=== PATIENT | female | born 1955 | race Caucasian/White ===

== ENCOUNTER 2016-11-20 16:02 | Emergency (ER) | payer OTHER ==
[~2016-11-20] VITALS: Ht 167.6 cm; Wt 90.0 kg
[~2016-11-20 16:02] MED LIST: CALC-69 PO; CLON1TAB4 PO; FERR1TAB85 PO; HYDR-3421 PO; LEVE1000 PO; LEVO50TA11 PO; MELO-273 PO; MIRT30 PO; PHENY100 PO; QUET100T PO; SERT100T PO; SIMV20TA6 PO; VENL-68 PO
[2016-11-20] MEDS ORDERED: BENZ2TAB10 PO (16:20)
[2016-11-20] MEDS ORDERED: TRAM50TA4 PO (16:20)
[2016-11-20] MEDS ORDERED: PHEN100C9 PO ×2 (16:20)
[2016-11-20] MEDS ORDERED: HYDR-309 PO (16:20)
[2016-11-20] MEDS ORDERED: LEVE500T53 PO (16:20)
[2016-11-20 19:32] VITALS: BP 145/83
== END 2016-11-20 19:35 | disposition home or self-care (01) ==
LOC: EMS 16:03
DX: S52.502A Unspecified fracture of the lower end of left radius, initial encounter for closed fracture (principal); E03.9 Hypothyroidism, unspecified; F17.210 Nicotine dependence, cigarettes, uncomplicated; F20.9 Schizophrenia, unspecified; Z88.2 Allergy status to sulfonamides; W01.0XXA Fall on same level from slipping, tripping and stumbling without subsequent striking against object, initial encounter; Y93.89 Activity, other specified; Y92.096 Garden or yard of other non-institutional residence as the place of occurrence of the external cause; Y99.9 Unspecified external cause status
CPT/HCPCS: 99284

== ENCOUNTER 2016-12-10 14:28 | Emergency (ER) | payer OTHER ==
[~2016-12-10] VITALS: Ht 162.6 cm; Wt 86.0 kg
[~2016-12-10 14:28] MED LIST changes: +BENZ2TAB10 PO; -CALC-69 PO; -CLON1TAB4 PO; -FERR1TAB85 PO; +HYDR-309 PO; -HYDR-3421 PO; -LEVE1000 PO; +LEVE500T53 PO; -MELO-273 PO; +PHEN100C9 PO; -PHENY100 PO; -SERT100T PO; +TRAM50TA4 PO
[2016-12-10 17:00] VITALS: BP 128/82
[2016-12-10] MEDS ORDERED: HYDROCODONE/ACETAMINOPHEN 5-325 MG TABLET PO ONE (17:00)
[2016-12-10] MEDS ORDERED: VENL-67 PO (17:02)
[2016-12-10] MEDS ORDERED: QUET300T2 PO (17:02)
== END 2016-12-10 17:26 | disposition home or self-care (01) ==
LOC: EMS 14:30
DX: S52.392A Other fracture of shaft of radius, left arm, initial encounter for closed fracture (principal); E03.9 Hypothyroidism, unspecified; F17.210 Nicotine dependence, cigarettes, uncomplicated; Z88.2 Allergy status to sulfonamides; W19.XXXA Unspecified fall, initial encounter; Y93.89 Activity, other specified; Y92.89 Other specified places as the place of occurrence of the external cause; Y99.8 Other external cause status
CPT/HCPCS: 99284

== ENCOUNTER 2018-01-24 14:38 | Emergency (ER) | payer OTHER ==
[~2018-01-24] VITALS: Ht 162.6 cm; Wt 84.1 kg
[~2018-01-24 14:38] MED LIST changes: -QUET100T PO; +QUET300T2 PO; +VENL-67 PO; -VENL-68 PO
[2018-01-24] MEDS ORDERED: TRAZ-219 PO (14:45)
[2018-01-24 16:23] LABS: BASOPHILS % (AUTO) 0.6 % (0.0-2.0); HEMATOCRIT 42.2 % (36-46); HEMOGLOBIN 14.5 g/dL (12.0-16.0); LYMPHOCYTES # (AUTO) 2.4 K/uL (1.0-4.8); LYMPHOCYTES % (AUTO) 31.6 % (22.0-44.0); MEAN CORPUSCULAR HEMOGLOBIN 28.6 pg (26.0-34.0); MEAN CORPUSCULAR HGB CONC 34.2 G/dL (31.0-37.0); MEAN CORPUSCULAR VOLUME 84 fL (80-100); MONOCYTES # (AUTO) 0.4 K/uL (0.1-1.0); MONOCYTES % (AUTO) 4.8 % (2.0-9.0); NEUTROPHILS # (AUTO) 4.6 K/uL (1.8-7.7); PLATELET COUNT (AUTO) 312 K/uL (150-450); RED BLOOD CELL COUNT(AUTO) 5.06 MIL/uL (4.00-5.20); RED CELL DISTRIBUTION WIDTH 14.8 % (11.5-14.5)
[2018-01-24 16:36] LABS: ANION GAP 10 mmol/L (8-16); CALCIUM, TOTAL 9.2 mg/dL (8.8-10.5); CARBON DIOXIDE 28 mmol/L (22-29); CHLORIDE 106 mmol/L (98-107); CREATININE 0.55 mg/dL (0.60-1.30); GLOMERULAR FILTR. RATE CALC > 60 mL/min (>60); GLUCOSE,RANDOM 95 mg/dL (70-110); POTASSIUM 3.7 mmol/L (3.5-5.1); SODIUM SERUM 144 mmol/L (136-145); UREA NITROGEN, BLOOD 7 mg/dL (7-18)
[2018-01-24 16:42] LABS: ALANINE AMINOTRANSFERASE 21 U/L (12-78); ALBUMIN 3.8 g/dL (3.4-5.0); ALKALINE PHOSPHATASE 139 U/L (46-116); ASPARTATE AMINOTRANSFERASE 13 U/L (15-37); BILIRUBIN,TOTAL 0.3 mg/dL (0.1-1.0); TOTAL PROTEIN, SERUM 7.8 g/dL (6.4-8.2)
[2018-01-24 17:14] VITALS: BP 132/93
== END 2018-01-24 17:16 | disposition home or self-care (01) ==
LOC: EMS 14:39
DX: R19.7 Diarrhea, unspecified (principal); K92.1 Melena; M54.5 Low back pain; G89.29 Other chronic pain; F41.9 Anxiety disorder, unspecified; F32.9 Major depressive disorder, single episode, unspecified; F20.9 Schizophrenia, unspecified; E03.9 Hypothyroidism, unspecified; F17.210 Nicotine dependence, cigarettes, uncomplicated; Z71.6 Tobacco abuse counseling; Z87.81 Personal history of (healed) traumatic fracture; Z98.51 Tubal ligation status; Z98.890 Other specified postprocedural states; Z88.2 Allergy status to sulfonamides; Z79.899 Other long term (current) drug therapy
CPT/HCPCS: 99284; 99406

== ENCOUNTER 2018-09-08 19:47 | Emergency (ER) | payer OTHER ==
[~2018-09-08] VITALS: Ht 162.6 cm; Wt 79.5 kg
[~2018-09-08 19:47] MED LIST changes: +CEPH500 PO; +DOCU250C91 PO; -HYDR-309 PO; +LEVO100 PO; -LEVO50TA11 PO; -QUET300T2 PO; +SIMV-260 PO; -SIMV20TA6 PO; -TRAM50TA4 PO
[2018-09-08 22:18] VITALS: BP 153/93
== END 2018-09-09 00:02 | disposition home or self-care (01) ==
LOC: EMS 19:48
DX: L30.9 Dermatitis, unspecified (principal); M54.5 Low back pain; E03.9 Hypothyroidism, unspecified; F41.9 Anxiety disorder, unspecified; F32.9 Major depressive disorder, single episode, unspecified; F20.9 Schizophrenia, unspecified; F12.90 Cannabis use, unspecified, uncomplicated; F17.210 Nicotine dependence, cigarettes, uncomplicated; Z79.899 Other long term (current) drug therapy; Z88.2 Allergy status to sulfonamides; Z98.51 Tubal ligation status

== ENCOUNTER 2018-12-08 16:57 | Emergency (ER) | payer OTHER ==
[~2018-12-08] VITALS: Ht 157.5 cm; Wt 68.2 kg
[2018-12-08 17:49] LABS: BASOPHILS % (AUTO) 0.4 % (0.0-2.0); EOSINOPHILS % (AUTO) 0.1 % (1.0-6.0); HEMATOCRIT 48.5 % (36-46); HEMOGLOBIN 15.9 g/dL (12.0-16.0); LYMPHOCYTES # (AUTO) 2.1 K/uL (1.0-4.8); LYMPHOCYTES % (AUTO) 16.5 % (22.0-44.0); MEAN CORPUSCULAR HEMOGLOBIN 26.3 pg (26.0-34.0); MEAN CORPUSCULAR HGB CONC 32.8 G/dL (31.0-37.0); MEAN CORPUSCULAR VOLUME 80 fL (80-100); MONOCYTES # (AUTO) 0.5 K/uL (0.1-1.0); MONOCYTES % (AUTO) 3.6 % (2.0-9.0); NEUTROPHILS % (AUTO) 79.4 % (40.0-70.0); PLATELET COUNT (AUTO) 348 K/uL (150-450); RED BLOOD CELL COUNT(AUTO) 6.04 MIL/uL (4.00-5.20); RED CELL DISTRIBUTION WIDTH 16.2 % (11.5-14.5)
[2018-12-08 18:02] LABS: ANION GAP 8 mmol/L (8-16); CALCIUM, TOTAL 10.1 mg/dL (8.8-10.5); CARBON DIOXIDE 30 mmol/L (22-29); CHLORIDE 97 mmol/L (98-107); CREATININE 0.89 mg/dL (0.60-1.30); GLOMERULAR FILTR. RATE CALC > 60 mL/min (>60); GLUCOSE,RANDOM 135 mg/dL (70-110); POTASSIUM 4.5 mmol/L (3.5-5.1); SODIUM SERUM 135 mmol/L (136-145); UREA NITROGEN, BLOOD 10 mg/dL (7-18)
[2018-12-08 18:17] LABS: ALANINE AMINOTRANSFERASE 28 U/L (12-78); ALKALINE PHOSPHATASE 164 U/L (46-116); ASPARTATE AMINOTRANSFERASE 20 U/L (15-37); BILIRUBIN,TOTAL 0.5 mg/dL (0.1-1.0); THYROID STIMULATING HORMONE 0.52 uIU/mL (0.36-3.74); TOTAL PROTEIN, SERUM 8.9 g/dL (6.4-8.2)
[2018-12-08] MEDS ORDERED: LORazepam 2 MG TABLET PO ONE (19:15)
[2018-12-08 21:15] VITALS: BP 136/73
== END 2018-12-08 21:25 | disposition home or self-care (01) ==
LOC: EMS 16:59
DX: F41.9 Anxiety disorder, unspecified (principal); R51 Headache; F32.9 Major depressive disorder, single episode, unspecified; F20.9 Schizophrenia, unspecified; E03.9 Hypothyroidism, unspecified; F17.210 Nicotine dependence, cigarettes, uncomplicated; F12.90 Cannabis use, unspecified, uncomplicated; Z98.51 Tubal ligation status; Z88.2 Allergy status to sulfonamides
CPT/HCPCS: 36415; 80053; 80185; 84443; 85025; 99284; 99406; G0480

== ENCOUNTER 2019-08-16 11:48 | Emergency (ER) | payer OTHER ==
[~2019-08-16] VITALS: Ht 162.6 cm; Wt 76.4 kg
[~2019-08-16 11:48] MED LIST changes: +DOCU-342 PO; -DOCU250C91 PO
[2019-08-16] MEDS ORDERED: HYDR50CA9 PO (11:58)
[2019-08-16] MEDS ORDERED: TRAZ-252 PO (11:58)
[2019-08-16] MEDS ORDERED: DiphenhydrAMINE HCL 25 MG CAPSULE PO ONE (12:45)
[2019-08-16] MEDS ORDERED: PERMETHRIN 5% 60 GM CREAM TP ONE (12:45)
[2019-08-16 13:28] VITALS: BP 121/79
== END 2019-08-16 13:44 | disposition home or self-care (01) ==
LOC: EMS 11:54
DX: R21 Rash and other nonspecific skin eruption (principal); F41.9 Anxiety disorder, unspecified; F32.9 Major depressive disorder, single episode, unspecified; F20.9 Schizophrenia, unspecified; F17.210 Nicotine dependence, cigarettes, uncomplicated; F12.90 Cannabis use, unspecified, uncomplicated; Z88.1 Allergy status to other antibiotic agents

== ENCOUNTER 2019-08-18 10:34 | Emergency (ER) | payer OTHER ==
[~2019-08-18] VITALS: Ht 162.6 cm; Wt 63.6 kg
[~2019-08-18 10:34] MED LIST changes: -CEPH500 PO; +HYDR50CA9 PO; +TRAZ-252 PO
[2019-08-18 11:26] VITALS: BP 152/72
[2019-08-18] MEDS ORDERED: DiphenhydrAMINE/ZINC ACET 30 GM CREAM TP ONE (11:45)
[2019-08-18] MEDS ORDERED: DOXYCYCLINE HYCLATE 100 MG CAPSULE PO ONE (11:45)
[2019-08-18] MEDS ORDERED: DEXAMETHASONE SOD PHOS 4 MG/ML 5 ML VIAL IM ONE (11:45)
== END 2019-08-18 12:44 | disposition home or self-care (01) ==
LOC: EMS 10:35
DX: L30.9 Dermatitis, unspecified (principal); F17.210 Nicotine dependence, cigarettes, uncomplicated; F12.90 Cannabis use, unspecified, uncomplicated; F41.9 Anxiety disorder, unspecified; F32.9 Major depressive disorder, single episode, unspecified; F20.9 Schizophrenia, unspecified; Z88.2 Allergy status to sulfonamides
CPT/HCPCS: 96372; 99283; 99406; J1100

== ENCOUNTER 2019-09-03 15:02 | Emergency (ER) | payer OTHER ==
[~2019-09-03] VITALS: Ht 162.6 cm; Wt 76.4 kg
[2019-09-03 15:04] VITALS: BP 140/64
[2019-09-03] MEDS ORDERED: CEPHALEXIN MONOHYDRATE 500 MG CAPSULE PO ONE (16:15)
[2019-09-03] MEDS ORDERED: BACITRACIN 0.9 GM PACKET OINTMENT TP ONE (16:15)
[2019-09-03] MEDS ORDERED: HydrOXYzine HCL 50 MG TABLET PO ONE (16:15)
== END 2019-09-03 16:30 | disposition home or self-care (01) ==
LOC: EMS 15:06
DX: L03.221 Cellulitis of neck (principal); L03.114 Cellulitis of left upper limb; L03.113 Cellulitis of right upper limb; L03.116 Cellulitis of left lower limb; L03.115 Cellulitis of right lower limb; F41.9 Anxiety disorder, unspecified; F32.9 Major depressive disorder, single episode, unspecified; F20.9 Schizophrenia, unspecified; E03.9 Hypothyroidism, unspecified; F17.210 Nicotine dependence, cigarettes, uncomplicated; Z88.2 Allergy status to sulfonamides; Z79.899 Other long term (current) drug therapy

== ENCOUNTER 2019-09-19 13:38 | Emergency (ER) | payer OTHER ==
[~2019-09-19] VITALS: Ht 162.6 cm; Wt 81.8 kg
[2019-09-19 13:59] VITALS: BP 119/99
== END 2019-09-19 14:58 | disposition home or self-care (01) ==
LOC: EMS 13:43
DX: L30.9 Dermatitis, unspecified (principal); F17.210 Nicotine dependence, cigarettes, uncomplicated; F12.90 Cannabis use, unspecified, uncomplicated; F20.9 Schizophrenia, unspecified; E03.9 Hypothyroidism, unspecified; F41.9 Anxiety disorder, unspecified

== ENCOUNTER 2020-08-07 04:45 | Emergency (ER) | payer OTHER ==
[~2020-08-07] VITALS: Ht 162.6 cm; Wt 72.7 kg
[~2020-08-07 04:45] MED LIST changes: -DOCU-342 PO; +DOCU-350 PO
[2020-08-07] MEDS ORDERED: VENL-68 PO (05:13)
[2020-08-07] MEDS ORDERED: CETI-450 PO (05:13)
[2020-08-07] MEDS ORDERED: KETOROLAC TROMETHAMINE 30 MG/ML VIAL IM ONE (05:15)
[2020-08-07 05:19] LABS: GLUCOSE,POINT OF CARE 115 MG/DL (70-110)
[2020-08-07 06:01] LABS: BASOPHILS % (AUTO) 0.7 % (0.0-2.0); EOSINOPHILS % (AUTO) 3.8 % (1.0-6.0); HEMATOCRIT 39.2 % (36-46); HEMOGLOBIN 13.2 g/dL (12.0-16.0); LYMPHOCYTES # (AUTO) 1.9 K/uL (1.0-4.8); LYMPHOCYTES % (AUTO) 19.6 % (22.0-44.0); MEAN CORPUSCULAR HGB CONC 33.6 G/dL (31.0-37.0); MEAN CORPUSCULAR VOLUME 74 fL (80-100); MONOCYTES # (AUTO) 0.4 K/uL (0.1-1.0); MONOCYTES % (AUTO) 3.9 % (2.0-9.0); NEUTROPHILS # (AUTO) 6.8 K/uL (1.8-7.7); PLATELET COUNT (AUTO) 410 K/uL (150-450); RED BLOOD CELL COUNT(AUTO) 5.28 MIL/uL (4.00-5.20); RED CELL DISTRIBUTION WIDTH 16.8 % (11.5-14.5)
[2020-08-07 06:13] LABS: LACTIC ACID 1.1 mmol/L (0.4-2.0)
[2020-08-07 06:17] LABS: ANION GAP 10 mmol/L (8-16); CALCIUM, TOTAL 8.5 mg/dL (8.8-10.5); CARBON DIOXIDE 27 mmol/L (22-29); CHLORIDE 104 mmol/L (98-107); CREATININE 0.68 mg/dL (0.60-1.30); GLOMERULAR FILTR. RATE CALC > 60 mL/min (>60); GLUCOSE,RANDOM 110 mg/dL (70-110); POTASSIUM 3.6 mmol/L (3.5-5.1); SODIUM SERUM 141 mmol/L (136-145); UREA NITROGEN, BLOOD 9 mg/dL (7-18)
[2020-08-07 06:28] LABS: ALANINE AMINOTRANSFERASE 24 U/L (12-78); ALBUMIN 3.3 g/dL (3.4-5.0); ALKALINE PHOSPHATASE 172 U/L (46-116); ASPARTATE AMINOTRANSFERASE 20 U/L (15-37); BILIRUBIN,TOTAL 0.3 mg/dL (0.1-1.0); C-REACTIVE PROTEIN QUANT 1.79 mg/dL (0.00-0.30); CREATINE KINASE, TOTAL ONLY 148 U/L (26-192); TOTAL PROTEIN, SERUM 8.8 g/dL (6.4-8.2)
[2020-08-07 07:08] LABS: ERYTHROCYTE SEDIMENTATION RATE 22 MM/HR (0-20)
[2020-08-07] MEDS ORDERED: PredniSONE 20 MG TABLET PO ONE (07:30)
[2020-08-07] MEDS ORDERED: ACETAMINOPHEN 650 MG/20.3 ML SOLUTION UDCUP PO ONE (07:30)
[2020-08-07 07:47] VITALS: BP 144/76
== END 2020-08-07 08:10 | disposition home or self-care (01) ==
LOC: EMS 04:46
DX: M19.90 Unspecified osteoarthritis, unspecified site (principal); F41.9 Anxiety disorder, unspecified; F32.9 Major depressive disorder, single episode, unspecified; F20.9 Schizophrenia, unspecified; F17.210 Nicotine dependence, cigarettes, uncomplicated; Z88.1 Allergy status to other antibiotic agents
CPT/HCPCS: 36415; 80053; 82550; 82962; 83605; 84145; 85025; 85651; 86140; 93971; 96372; 99284; J1885; J7512

== ENCOUNTER 2020-08-25 14:17 | Emergency (ER) | payer OTHER ==
[~2020-08-25] VITALS: Ht 162.6 cm; Wt 81.8 kg
[~2020-08-25 14:17] MED LIST changes: -BENZ2TAB10 PO; +CETI-450 PO; -DOCU-350 PO; +VENL-68 PO
[2020-08-25] MEDS ORDERED: KETOROLAC TROMETHAMINE 30 MG/ML VIAL IM ONE (15:45)
[2020-08-25 16:22] VITALS: BP 154/88
== END 2020-08-25 16:25 | disposition home or self-care (01) ==
LOC: EMS 14:20
DX: M25.512 Pain in left shoulder (principal); F41.9 Anxiety disorder, unspecified; F32.9 Major depressive disorder, single episode, unspecified; F20.9 Schizophrenia, unspecified; F17.210 Nicotine dependence, cigarettes, uncomplicated; Z88.1 Allergy status to other antibiotic agents
CPT/HCPCS: 96372; 99283; J1885

== ENCOUNTER 2020-09-12 14:03 | Emergency (ER) | payer OTHER ==
[~2020-09-12] VITALS: Ht 162.6 cm; Wt 77.3 kg
[2020-09-12] MEDS ORDERED: INDOMETHACIN 50 MG CAPSULE PO ONE (16:00)
[2020-09-12 16:13] VITALS: BP 161/85
== END 2020-09-12 16:27 | disposition home or self-care (01) ==
LOC: EMS 14:09
DX: M19.031 Primary osteoarthritis, right wrist (principal); F41.9 Anxiety disorder, unspecified; F32.9 Major depressive disorder, single episode, unspecified; F20.9 Schizophrenia, unspecified; F17.210 Nicotine dependence, cigarettes, uncomplicated; Z88.1 Allergy status to other antibiotic agents
CPT/HCPCS: 99283

== ENCOUNTER 2020-10-28 16:40 | Emergency (ER) | payer OTHER ==
[~2020-10-28] VITALS: Ht 162.6 cm; Wt 70.5 kg
[2020-10-28] MEDS ORDERED: VENL-66 PO (18:42)
[2020-10-28] MEDS ORDERED: TRAZ150 PO (18:42)
[2020-10-28] MEDS ORDERED: KETOROLAC TROMETHAMINE 60 MG/2 ML VIAL IM ONE (18:45)
[2020-10-28 19:25] VITALS: BP 148/68
[2020-10-28] MEDS ORDERED: PredniSONE 20 MG TABLET PO ONE (19:30)
== END 2020-10-28 19:35 | disposition home or self-care (01) ==
LOC: EMS 16:40
DX: S50.812A Abrasion of left forearm, initial encounter (principal); M75.32 Calcific tendinitis of left shoulder; F41.9 Anxiety disorder, unspecified; F32.9 Major depressive disorder, single episode, unspecified; F20.9 Schizophrenia, unspecified; F17.210 Nicotine dependence, cigarettes, uncomplicated; F12.90 Cannabis use, unspecified, uncomplicated; Z88.1 Allergy status to other antibiotic agents; W01.0XXA Fall on same level from slipping, tripping and stumbling without subsequent striking against object, initial encounter; Y93.89 Activity, other specified; Y92.89 Other specified places as the place of occurrence of the external cause; Y99.8 Other external cause status
CPT/HCPCS: 73030; 96372; 99283; J1885; J7512

== ENCOUNTER 2021-05-26 14:09 | Emergency (ER) | payer OTHER ==
[~2021-05-26] VITALS: Ht 162.6 cm; Wt 81.8 kg
[~2021-05-26 14:09] MED LIST changes: +LEVE500T20 PO; -LEVE500T53 PO; -TRAZ-252 PO; +TRAZ150T80 PO; +VENL-66 PO; -VENL-67 PO
[2021-05-26] MEDS ORDERED: KETOROLAC TROMETHAMINE 60 MG/2 ML VIAL IM ONE (15:15)
[2021-05-26 16:59] VITALS: BP 133/79
== END 2021-05-26 17:05 | disposition home or self-care (01) ==
LOC: EMS 14:11
DX: R07.89 Other chest pain (principal); F41.9 Anxiety disorder, unspecified; F32.9 Major depressive disorder, single episode, unspecified; F20.9 Schizophrenia, unspecified; F17.210 Nicotine dependence, cigarettes, uncomplicated; F12.90 Cannabis use, unspecified, uncomplicated; Z88.1 Allergy status to other antibiotic agents
CPT/HCPCS: 71045; 96372; 99283; 99406; J1885

== ENCOUNTER 2021-06-25 13:22 | Emergency (ER) | payer OTHER ==
[~2021-06-25] VITALS: Ht 162.6 cm; Wt 79.5 kg
[2021-06-25 17:46] VITALS: BP 161/99
== END 2021-06-25 17:47 | disposition home or self-care (01) ==
LOC: EMS 13:25
DX: M75.32 Calcific tendinitis of left shoulder (principal); M25.522 Pain in left elbow; F32.9 Major depressive disorder, single episode, unspecified; E03.9 Hypothyroidism, unspecified; F20.9 Schizophrenia, unspecified; F41.9 Anxiety disorder, unspecified; F17.210 Nicotine dependence, cigarettes, uncomplicated; F12.90 Cannabis use, unspecified, uncomplicated; Z88.2 Allergy status to sulfonamides; Z79.899 Other long term (current) drug therapy
CPT/HCPCS: 99284

== ENCOUNTER 2021-07-15 15:41 | Inpatient (IN) | payer OTHER ==
[~2021-07-15] VITALS: Ht 157.5 cm; Wt 107.4 kg
[~2021-07-15 15:41] MED LIST changes: +HYDR50CA7 PO; -HYDR50CA9 PO
[2021-07-15 17:55] LABS: BASOPHILS % (AUTO) 0.5 % (0.0-2.0); EOSINOPHILS % (AUTO) 3.1 % (1.0-6.0); HEMATOCRIT 33.1 % (36-46); HEMOGLOBIN 10.3 g/dL (12.0-16.0); LYMPHOCYTES # (AUTO) 1.9 K/uL (1.0-4.8); MEAN CORPUSCULAR HEMOGLOBIN 22.2 pg (26.0-34.0); MEAN CORPUSCULAR HGB CONC 31.2 G/dL (31.0-37.0); MEAN CORPUSCULAR VOLUME 71 fL (80-100); MONOCYTES # (AUTO) 0.6 K/uL (0.1-1.0); MONOCYTES % (AUTO) 6.5 % (2.0-9.0); NEUTROPHILS # (AUTO) 5.8 K/uL (1.8-7.7); NEUTROPHILS % (AUTO) 67.9 % (40.0-70.0); PLATELET COUNT (AUTO) 422 K/uL (150-450); RED BLOOD CELL COUNT(AUTO) 4.66 MIL/uL (4.00-5.20); RED CELL DISTRIBUTION WIDTH 17.2 % (11.5-14.5)
[2021-07-15 17:56] LABS: COVID AG,FIA SOURCE NASOPHARYNGEAL
[2021-07-15 18:01] LABS: ANION GAP 8 mmol/L (8-16); CALCIUM, TOTAL 8.3 mg/dL (8.8-10.5); CARBON DIOXIDE 29 mmol/L (22-29); CHLORIDE 104 mmol/L (98-107); CREATININE 0.68 mg/dL (0.60-1.30); GLOMERULAR FILTR. RATE CALC > 60 mL/min (>60); GLUCOSE,RANDOM 130 mg/dL (70-110); POTASSIUM 3.9 mmol/L (3.5-5.1); SODIUM SERUM 141 mmol/L (136-145); UREA NITROGEN, BLOOD 8 mg/dL (7-18)
[2021-07-15 18:12] LABS: D-DIMER 1.29 mg/L FEU (0.00-0.50); PROTHROMBIN TIME 10.4 SEC (9.4-11.6)
[2021-07-15 18:15] LABS: B-TYPE NATRIURETIC PEPTIDE 133 pg/mL (0-100)
[2021-07-15 18:16] LABS: PLATELET MORPHOLOGY COMMENT LARGE PLTS PRESENT
[2021-07-15 18:25] LABS: ALANINE AMINOTRANSFERASE 18 U/L (12-78); ALKALINE PHOSPHATASE 150 U/L (46-116); ASPARTATE AMINOTRANSFERASE 20 U/L (15-37); BILIRUBIN,TOTAL 0.4 mg/dL (0.1-1.0); CREATINE KINASE, TOTAL ONLY 265 U/L (26-192); TOTAL PROTEIN, SERUM 8.1 g/dL (6.4-8.2)
[2021-07-15 18:26] LABS: ALBUMIN 3.6 g/dL (3.4-5.0)
[2021-07-15] MEDS ORDERED: LORazepam 2 MG/ML VIAL IVP ONE (20:00)
[2021-07-15 21:29] LABS: APPEARANCE,URINE CLOUDY (CLEAR); BILIRUBIN,URINE NEGATIVE (NEGATIVE); GLUCOSE, URINE (UA) NEGATIVE (NEGATIVE); KETONES,URINE NEGATIVE (NEGATIVE); LEUKOCYTE ESTERASE ,URINE NEGATIVE (NEGATIVE); NITRATE,URINE NEGATIVE (NEGATIVE); OCCULT BLOOD,URINE NEGATIVE (NEGATIVE); PH,URINE 5.5 (5.0-8.0); PROTEIN,URINE TRACE (NEGATIVE); UROBILINOGEN,URINE 0.2 mg/dL (<=1.0)
[2021-07-16] MEDS ORDERED: HEPARIN SODIUM 25000 UNITS/D5W 250 ML IV PRN
[2021-07-16] MEDS ORDERED: HEPARIN SODIUM,PORCINE 5,000 UNITS/ML VIAL IVP ONE
[2021-07-16] MEDS ORDERED: HEPARIN SODIUM,PORCINE 5,000 UNITS/ML VIAL IVP PRN ×2
[2021-07-16] MEDS ORDERED: ACETAMINOPHEN 325 MG TABLET PO PRN ×2 (00:30→12:45)
[2021-07-16] MEDS ORDERED: 0.9% SODIUM CHLORIDE 10 ML SYRINGE IVP PRN (00:30)
[2021-07-16] MEDS ORDERED: ONDANSETRON HCL 4 MG/2 ML VIAL IVP PRN ×2 (00:30→12:45)
[2021-07-16 00:33] LABS: BASOPHILS % (AUTO) 0.5 % (0.0-2.0); EOSINOPHILS % (AUTO) 3.2 % (1.0-6.0); LYMPHOCYTES # (AUTO) 1.7 K/uL (1.0-4.8); LYMPHOCYTES % (AUTO) 20.4 % (22.0-44.0); MEAN CORPUSCULAR HEMOGLOBIN 21.6 pg (26.0-34.0); MEAN CORPUSCULAR HGB CONC 30.3 G/dL (31.0-37.0); MEAN CORPUSCULAR VOLUME 71 fL (80-100); MONOCYTES # (AUTO) 0.4 K/uL (0.1-1.0); MONOCYTES % (AUTO) 5.3 % (2.0-9.0); NEUTROPHILS # (AUTO) 5.8 K/uL (1.8-7.7); NEUTROPHILS % (AUTO) 70.6 % (40.0-70.0); PLATELET COUNT (AUTO) 412 K/uL (150-450); RED BLOOD CELL COUNT(AUTO) 4.64 MIL/uL (4.00-5.20); RED CELL DISTRIBUTION WIDTH 17.1 % (11.5-14.5)
[2021-07-16 00:49] LABS: INR 1.1 (0.9-1.1); PROTHROMBIN TIME 11.2 SEC (9.4-11.6)
[2021-07-16] MEDS ORDERED: ALBUTEROL SULFATE 5 MG/ML 20 ML NEB SOLN [BULK] NEB ONE (02:15)
[2021-07-16 03:21] LABS: ABG METHEMOGLOBIN 0.3 % (0.0-1.5); ABG OXYGEN SATURATION 99.5 % (95.0-98.0); ABG TOTAL HEMOGLOBIN 11.3 G/dL (12.0-18.0); SOURCE, BLOOD GAS ARTERIAL; TEMPERATURE, FAHRENHEIT, BG 98.6 FAHREN (96.0-98.6)
[2021-07-16 03:24] LABS: ABG BASE EXCESS 0.8 mmol/L (-2.0-3.0); ABG CARBOXYHEMOGLOBIN 1.7 % (0.0-1.5); ABG HCO3 25.1 mmol/L (22.0-26.0); ABG OXYGEN CONTENT 15.9 mL/dL (15.0-23.0); ABG OXYHEMOGLOBIN 97.5 % (94.0-100.0); ABG PCO2 43 mmHg (35-45); ABG PH 7.397 (7.35-7.450); PO2, ARTERIAL BG 196.6 mmHg (79.0-87.0)
[2021-07-16 03:25] LABS: O2 DEVICE,BLOOD GAS NON REBREATHER (ROOM AIR); SITE, BLOOD GAS RT RADIAL
[2021-07-16 05:25] VITALS: BP 153/91
[2021-07-16] MEDS: LORazepam 2 MG/ML VIAL IVP PRN (05:32)
[2021-07-16 07:03] VITALS: BP 140/71
[2021-07-16 11:12] VITALS: BP 128/66
[2021-07-16] MEDS ORDERED: MAGNESIUM HYDROXIDE SUSPENSION 30 ML UDCUP PO PRN (12:45)
[2021-07-16] MEDS ORDERED: HydrOXYzine PAMOATE 50 MG CAPSULE PO PRN (12:45)
[2021-07-16] MEDS ORDERED: BISACODYL 10 MG RECTAL RECTAL SUPPOSITORY PR PRN (12:45)
[2021-07-16 13:13] LABS: BASOPHILS % (AUTO) 1.2 % (0.0-2.0); EOSINOPHILS % (AUTO) 3.2 % (1.0-6.0); HEMATOCRIT 34.1 % (36-46); HEMOGLOBIN 10.6 g/dL (12.0-16.0); LYMPHOCYTES # (AUTO) 0.6 K/uL (1.0-4.8); LYMPHOCYTES % (AUTO) 7.8 % (22.0-44.0); MEAN CORPUSCULAR HEMOGLOBIN 21.9 pg (26.0-34.0); MEAN CORPUSCULAR HGB CONC 30.9 G/dL (31.0-37.0); MEAN CORPUSCULAR VOLUME 71 fL (80-100); MONOCYTES # (AUTO) 0.3 K/uL (0.1-1.0); MONOCYTES % (AUTO) 3.5 % (2.0-9.0); NEUTROPHILS # (AUTO) 6.8 K/uL (1.8-7.7); NEUTROPHILS % (AUTO) 84.3 % (40.0-70.0); PLATELET COUNT (AUTO) 348 K/uL (150-450); RED BLOOD CELL COUNT(AUTO) 4.83 MIL/uL (4.00-5.20)
[2021-07-16 13:26] LABS: PROTHROMBIN TIME 10.9 SEC (9.4-11.6)
[2021-07-16 15:24] VITALS: BP 132/69
[2021-07-16] MEDS ORDERED: HEPARIN SODIUM,PORCINE 5,000 UNITS/ML VIAL SQ SCH (16:00)
[2021-07-16] MEDS: PHENYTOIN SODIUM 100 MG ER CAPSULE PO SCH ×2 (16:51→20:14)
[2021-07-16] MEDS: MIRTAZAPINE 15 MG TABLET PO SCH (20:14)
[2021-07-16] MEDS: DOCUSATE SODIUM 100 MG CAPSULE PO SCH (20:14)
[2021-07-16] MEDS: LevETIRAcetam 500 MG TABLET PO SCH (20:14)
[2021-07-16] MEDS: SIMVASTATIN 20 MG TABLET PO SCH (20:14)
[2021-07-16 20:20] VITALS: BP 138/81
[2021-07-16] MEDS: ZOLPIDEM TARTRATE 5 MG TABLET PO PRN (23:10)
[2021-07-16 23:20] VITALS: BP 128/86
[2021-07-17] MEDS: LORazepam 2 MG/ML VIAL IVP PRN ×2 (01:04→16:44)
[2021-07-17 05:00] VITALS: BP 136/76
[2021-07-17] MEDS: HEPARIN SODIUM 25000 UNITS/D5W 250 ML IV PRN ×2 (05:24→20:27)
[2021-07-17] MEDS: LEVOTHYROXINE SODIUM 100 MCG TABLET PO SCH (05:31)
[2021-07-17 06:01] LABS: BASOPHILS % (AUTO) 0.3 % (0.0-2.0); EOSINOPHILS % (AUTO) 4.8 % (1.0-6.0); HEMATOCRIT 31.6 % (36-46); HEMOGLOBIN 9.8 g/dL (12.0-16.0); LYMPHOCYTES # (AUTO) 1.2 K/uL (1.0-4.8); LYMPHOCYTES % (AUTO) 16.9 % (22.0-44.0); MEAN CORPUSCULAR HEMOGLOBIN 21.7 pg (26.0-34.0); MEAN CORPUSCULAR VOLUME 70 fL (80-100); MONOCYTES # (AUTO) 0.3 K/uL (0.1-1.0); MONOCYTES % (AUTO) 4.6 % (2.0-9.0); NEUTROPHILS % (AUTO) 73.4 % (40.0-70.0); PLATELET COUNT (AUTO) 402 K/uL (150-450); RED BLOOD CELL COUNT(AUTO) 4.51 MIL/uL (4.00-5.20)
[2021-07-17 06:24] LABS: ALANINE AMINOTRANSFERASE 16 U/L (12-78); ALBUMIN 3.1 g/dL (3.4-5.0); ALKALINE PHOSPHATASE 130 U/L (46-116); ANION GAP 9 mmol/L (8-16); ASPARTATE AMINOTRANSFERASE 16 U/L (15-37); BILIRUBIN,TOTAL 0.4 mg/dL (0.1-1.0); CALCIUM, TOTAL 8.5 mg/dL (8.8-10.5); CARBON DIOXIDE 29 mmol/L (22-29); CHLORIDE 102 mmol/L (98-107); CREATININE 0.63 mg/dL (0.60-1.30); GLOMERULAR FILTR. RATE CALC > 60 mL/min (>60); GLUCOSE,RANDOM 134 mg/dL (70-110); POTASSIUM 3.9 mmol/L (3.5-5.1); SODIUM SERUM 140 mmol/L (136-145); TOTAL PROTEIN, SERUM 7.6 g/dL (6.4-8.2); UREA NITROGEN, BLOOD 8 mg/dL (7-18)
[2021-07-17] MEDS: HEPARIN SODIUM,PORCINE 5,000 UNITS/ML VIAL IVP PRN ×3 (06:45→20:28)
[2021-07-17] MEDS: DOCUSATE SODIUM 100 MG CAPSULE PO SCH ×2 (08:03→20:31)
[2021-07-17] MEDS: PHENYTOIN SODIUM 100 MG ER CAPSULE PO SCH ×3 (08:03→20:25)
[2021-07-17] MEDS: LevETIRAcetam 500 MG TABLET PO SCH ×2 (08:03→20:26)
[2021-07-17] MEDS: PANTOPRAZOLE SODIUM 40 MG DR TABLET PO SCH (08:03)
[2021-07-17] MEDS: VENLAFAXINE HCL 37.5 MG ER CAPSULE PO SCH (08:03)
[2021-07-17 08:10] VITALS: BP 149/82
[2021-07-17] MEDS: HYDROCODONE/ACETAMINOPHEN 5-325 MG TABLET PO PRN ×2 (10:28→16:44)
[2021-07-17 11:53] VITALS: BP 135/73
[2021-07-17 13:02] LABS: % IRON SATURATION 8.7 % (22-44)
[2021-07-17] MEDS: MORPHINE SULFATE 2 MG/ML SYRINGE IVP PRN (13:56)
[2021-07-17 15:00] VITALS: BP 148/82
[2021-07-17] MEDS: MIRTAZAPINE 15 MG TABLET PO SCH (20:25)
[2021-07-17] MEDS: SIMVASTATIN 20 MG TABLET PO SCH (20:25)
[2021-07-17 20:36] VITALS: BP 155/73
[2021-07-18 00:30] VITALS: BP 136/77
[2021-07-18 03:22] VITALS: BP 152/94
[2021-07-18] MEDS: LEVOTHYROXINE SODIUM 100 MCG TABLET PO SCH (05:49)
[2021-07-18 07:31] LABS: BASOPHILS % (AUTO) 0.4 % (0.0-2.0); EOSINOPHILS % (AUTO) 5.6 % (1.0-6.0); HEMATOCRIT 30.5 % (36-46); HEMOGLOBIN 9.5 g/dL (12.0-16.0); LYMPHOCYTES # (AUTO) 1.2 K/uL (1.0-4.8); LYMPHOCYTES % (AUTO) 19.4 % (22.0-44.0); MEAN CORPUSCULAR HGB CONC 31.3 G/dL (31.0-37.0); MEAN CORPUSCULAR VOLUME 70 fL (80-100); MONOCYTES # (AUTO) 0.4 K/uL (0.1-1.0); MONOCYTES % (AUTO) 6.4 % (2.0-9.0); NEUTROPHILS # (AUTO) 4.1 K/uL (1.8-7.7); NEUTROPHILS % (AUTO) 68.2 % (40.0-70.0); PLATELET COUNT (AUTO) 361 K/uL (150-450); RED BLOOD CELL COUNT(AUTO) 4.34 MIL/uL (4.00-5.20); RED CELL DISTRIBUTION WIDTH 16.8 % (11.5-14.5)
[2021-07-18 08:13] LABS: ALANINE AMINOTRANSFERASE 16 U/L (12-78); ALKALINE PHOSPHATASE 114 U/L (46-116); ANION GAP 7 mmol/L (8-16); ASPARTATE AMINOTRANSFERASE 20 U/L (15-37); BILIRUBIN,TOTAL 0.3 mg/dL (0.1-1.0); CALCIUM, TOTAL 8.4 mg/dL (8.8-10.5); CARBON DIOXIDE 28 mmol/L (22-29); CHLORIDE 104 mmol/L (98-107); CREATININE 0.53 mg/dL (0.60-1.30); GLUCOSE,RANDOM 121 mg/dL (70-110); POTASSIUM 4.1 mmol/L (3.5-5.1); SODIUM SERUM 139 mmol/L (136-145); TOTAL PROTEIN, SERUM 7.5 g/dL (6.4-8.2); UREA NITROGEN, BLOOD 11 mg/dL (7-18)
[2021-07-18 08:15] LABS: GLOMERULAR FILTR. RATE CALC > 60 mL/min (>60)
[2021-07-18] MEDS: LevETIRAcetam 500 MG TABLET PO SCH ×2 (08:27→21:05)
[2021-07-18] MEDS: PHENYTOIN SODIUM 100 MG ER CAPSULE PO SCH ×3 (08:27→21:05)
[2021-07-18] MEDS: VENLAFAXINE HCL 37.5 MG ER CAPSULE PO SCH (08:27)
[2021-07-18] MEDS: DOCUSATE SODIUM 100 MG CAPSULE PO SCH ×2 (08:28→21:05)
[2021-07-18] MEDS: PANTOPRAZOLE SODIUM 40 MG DR TABLET PO SCH (08:28)
[2021-07-18 08:47] VITALS: BP 141/59
[2021-07-18 11:47] VITALS: BP 136/63
[2021-07-18 16:07] VITALS: BP 124/73
[2021-07-18 20:10] VITALS: BP 133/97
[2021-07-18] MEDS: MIRTAZAPINE 15 MG TABLET PO SCH (21:05)
[2021-07-18] MEDS: SIMVASTATIN 20 MG TABLET PO SCH (21:05)
[2021-07-18] MEDS: HEPARIN SODIUM 25000 UNITS/D5W 250 ML IV PRN (21:05)
[2021-07-18] MEDS: LORazepam 2 MG/ML VIAL IVP PRN (22:20)
[2021-07-19 00:49] VITALS: BP 131/82
[2021-07-19 04:22] VITALS: BP 138/70
[2021-07-19 05:29] LABS: BASOPHILS % (AUTO) 0.8 % (0.0-2.0); HEMATOCRIT 30.2 % (36-46); HEMOGLOBIN 9.4 g/dL (12.0-16.0); LYMPHOCYTES # (AUTO) 1.6 K/uL (1.0-4.8); LYMPHOCYTES % (AUTO) 24.8 % (22.0-44.0); MEAN CORPUSCULAR HEMOGLOBIN 22.2 pg (26.0-34.0); MEAN CORPUSCULAR HGB CONC 31.2 G/dL (31.0-37.0); MEAN CORPUSCULAR VOLUME 71 fL (80-100); MONOCYTES # (AUTO) 0.5 K/uL (0.1-1.0); MONOCYTES % (AUTO) 7.6 % (2.0-9.0); NEUTROPHILS # (AUTO) 3.9 K/uL (1.8-7.7); NEUTROPHILS % (AUTO) 60.8 % (40.0-70.0); PLATELET COUNT (AUTO) 362 K/uL (150-450); RED BLOOD CELL COUNT(AUTO) 4.24 MIL/uL (4.00-5.20)
[2021-07-19 06:00] LABS: ALANINE AMINOTRANSFERASE 14 U/L (12-78); ALBUMIN 3.1 g/dL (3.4-5.0); ALKALINE PHOSPHATASE 121 U/L (46-116); ANION GAP 6 mmol/L (8-16); ASPARTATE AMINOTRANSFERASE 17 U/L (15-37); BILIRUBIN,TOTAL 0.2 mg/dL (0.1-1.0); CALCIUM, TOTAL 8.5 mg/dL (8.8-10.5); CARBON DIOXIDE 31 mmol/L (22-29); CHLORIDE 103 mmol/L (98-107); CREATININE 0.63 mg/dL (0.60-1.30); GLOMERULAR FILTR. RATE CALC > 60 mL/min (>60); GLUCOSE,RANDOM 165 mg/dL (70-110); POTASSIUM 3.9 mmol/L (3.5-5.1); SODIUM SERUM 140 mmol/L (136-145); TOTAL PROTEIN, SERUM 7.5 g/dL (6.4-8.2); UREA NITROGEN, BLOOD 9 mg/dL (7-18)
[2021-07-19] MEDS: LEVOTHYROXINE SODIUM 100 MCG TABLET PO SCH (06:33)
[2021-07-19 07:26] LABS: GLUCOMETER DEV NAME(LOC) 5S.2B; GLUCOSE,POINT OF CARE 159 MG/DL (70-110)
[2021-07-19 07:26] LABS: GLUCOMETER DEV NAME(LOC) 5S.2B; GLUCOSE,POINT OF CARE 152 MG/DL (70-110)
[2021-07-19] MEDS: DOCUSATE SODIUM 100 MG CAPSULE PO SCH ×2 (07:40→20:26)
[2021-07-19] MEDS: PANTOPRAZOLE SODIUM 40 MG DR TABLET PO SCH (07:40)
[2021-07-19] MEDS: PHENYTOIN SODIUM 100 MG ER CAPSULE PO SCH ×3 (07:41→20:26)
[2021-07-19] MEDS: LevETIRAcetam 500 MG TABLET PO SCH ×2 (07:41→20:26)
[2021-07-19] MEDS: HEPARIN SODIUM,PORCINE 5,000 UNITS/ML VIAL IVP PRN (07:45)
[2021-07-19] MEDS: VENLAFAXINE HCL 37.5 MG ER CAPSULE PO SCH (09:01)
[2021-07-19 09:58] VITALS: BP 99/73
[2021-07-19 15:50] VITALS: BP 138/68
[2021-07-19 19:24] VITALS: BP 107/71
[2021-07-19] MEDS: APIXABAN 5 MG TABLET PO SCH (20:26)
[2021-07-19] MEDS: MIRTAZAPINE 15 MG TABLET PO SCH (20:26)
[2021-07-19] MEDS: ROPINIRole HCL 0.25 MG TABLET PO SCH (20:26)
[2021-07-19] MEDS: SIMVASTATIN 20 MG TABLET PO SCH (20:26)
[2021-07-19] MEDS: MORPHINE SULFATE 2 MG/ML SYRINGE IVP PRN (20:38)
[2021-07-19] MEDS: LORazepam 2 MG/ML VIAL IVP PRN (21:32)
[2021-07-19 23:05] VITALS: BP 165/81
[2021-07-20 03:15] VITALS: BP 136/74
[2021-07-20] MEDS: LEVOTHYROXINE SODIUM 100 MCG TABLET PO SCH (05:29)
[2021-07-20] MEDS: LORazepam 2 MG/ML VIAL IVP PRN (05:29)
[2021-07-20] MEDS: DOCUSATE SODIUM 100 MG CAPSULE PO SCH ×2 (08:10→21:04)
[2021-07-20] MEDS: PHENYTOIN SODIUM 100 MG ER CAPSULE PO SCH ×3 (08:10→21:05)
[2021-07-20] MEDS: PANTOPRAZOLE SODIUM 40 MG DR TABLET PO SCH (08:10)
[2021-07-20] MEDS: VENLAFAXINE HCL 37.5 MG ER CAPSULE PO SCH (08:11)
[2021-07-20] MEDS: APIXABAN 5 MG TABLET PO SCH ×2 (08:11→21:04)
[2021-07-20] MEDS: LevETIRAcetam 500 MG TABLET PO SCH ×2 (08:11→21:05)
[2021-07-20 08:52] VITALS: BP 156/86
[2021-07-20] MEDS ORDERED: APIX5TAB PO ×2 (11:12→11:13)
[2021-07-20] MEDS ORDERED: ROPI0.2535 PO (11:13)
[2021-07-20] MEDS ORDERED: ALBU8HFA IH (11:14)
[2021-07-20 12:22] VITALS: BP 126/79
[2021-07-20] MEDS: ALPRAZolam 0.25 MG TABLET PO PRN ×2 (12:36→19:20)
[2021-07-20 16:10] VITALS: BP 128/66
[2021-07-20 17:01] LABS: GLUCOMETER DEV NAME(LOC) 5N.1C; GLUCOSE,POINT OF CARE 144 MG/DL (70-110)
[2021-07-20 19:45] VITALS: BP 151/83
[2021-07-20] MEDS: MIRTAZAPINE 15 MG TABLET PO SCH (21:04)
[2021-07-20] MEDS: ROPINIRole HCL 0.25 MG TABLET PO SCH (21:05)
[2021-07-20] MEDS: SIMVASTATIN 20 MG TABLET PO SCH (21:05)
[2021-07-20] MEDS: ZOLPIDEM TARTRATE 5 MG TABLET PO PRN (21:05)
[2021-07-20] MEDS: HYDROCODONE/ACETAMINOPHEN 5-325 MG TABLET PO PRN (21:06)
[2021-07-20 23:10] VITALS: BP 139/65
[2021-07-21 02:54] VITALS: BP 146/77
[2021-07-21 06:05] LABS: BASOPHILS % (AUTO) 0.8 % (0.0-2.0); EOSINOPHILS % (AUTO) 6.9 % (1.0-6.0); HEMOGLOBIN 10.1 g/dL (12.0-16.0); LYMPHOCYTES # (AUTO) 1.7 K/uL (1.0-4.8); MEAN CORPUSCULAR HEMOGLOBIN 22.3 pg (26.0-34.0); MEAN CORPUSCULAR HGB CONC 31.4 G/dL (31.0-37.0); MEAN CORPUSCULAR VOLUME 71 fL (80-100); MONOCYTES # (AUTO) 0.5 K/uL (0.1-1.0); MONOCYTES % (AUTO) 8.1 % (2.0-9.0); NEUTROPHILS # (AUTO) 3.7 K/uL (1.8-7.7); NEUTROPHILS % (AUTO) 58.2 % (40.0-70.0); PLATELET COUNT (AUTO) 354 K/uL (150-450); RED BLOOD CELL COUNT(AUTO) 4.52 MIL/uL (4.00-5.20); RED CELL DISTRIBUTION WIDTH 17.3 % (11.5-14.5)
[2021-07-21 06:21] LABS: ANION GAP 9 mmol/L (8-16); CALCIUM, TOTAL 8.7 mg/dL (8.8-10.5); CARBON DIOXIDE 27 mmol/L (22-29); CHLORIDE 104 mmol/L (98-107); CREATININE 0.61 mg/dL (0.60-1.30); GLOMERULAR FILTR. RATE CALC > 60 mL/min (>60); GLUCOSE,RANDOM 141 mg/dL (70-110); POTASSIUM 4.2 mmol/L (3.5-5.1); SODIUM SERUM 140 mmol/L (136-145); UREA NITROGEN, BLOOD 13 mg/dL (7-18)
[2021-07-21] MEDS: LEVOTHYROXINE SODIUM 100 MCG TABLET PO SCH (06:25)
[2021-07-21] MEDS: APIXABAN 5 MG TABLET PO SCH (08:29)
[2021-07-21] MEDS: PHENYTOIN SODIUM 100 MG ER CAPSULE PO SCH ×2 (08:29→15:32)
[2021-07-21] MEDS: VENLAFAXINE HCL 37.5 MG ER CAPSULE PO SCH (08:29)
[2021-07-21] MEDS: DOCUSATE SODIUM 100 MG CAPSULE PO SCH (08:29)
[2021-07-21] MEDS: PANTOPRAZOLE SODIUM 40 MG DR TABLET PO SCH (08:29)
[2021-07-21] MEDS: LevETIRAcetam 500 MG TABLET PO SCH (08:29)
[2021-07-21 08:42] VITALS: BP 148/77
[2021-07-21] MEDS: ALPRAZolam 0.25 MG TABLET PO PRN (15:31)
[2021-07-26] MEDS ORDERED: APIXABAN 5 MG TABLET PO SCH (21:00)
== END 2021-07-21 17:45 | disposition home health service (06) | DRG 134 ==
LOC: EMS 16:00 → 5N 07-16 00:03
PROVIDERS: ADMIT Internal Medicine; ATTEND Internal Medicine
PROC: 5A09357 Assistance with Respiratory Ventilation, Less than 24 Consecutive Hours, Continuous Positive Airway Pressure (ICD-10-PCS; principal; 2021-07-16)
DX: I26.99 Other pulmonary embolism without acute cor pulmonale (principal); J96.01 Acute respiratory failure with hypoxia; I50.9 Heart failure, unspecified; J44.1 Chronic obstructive pulmonary disease with (acute) exacerbation; E03.9 Hypothyroidism, unspecified; E66.9 Obesity, unspecified; E78.5 Hyperlipidemia, unspecified; Z68.41 Body mass index [BMI] 40.0-44.9, adult; G47.33 Obstructive sleep apnea (adult) (pediatric); F17.200 Nicotine dependence, unspecified, uncomplicated; F12.90 Cannabis use, unspecified, uncomplicated; F32.A Depression, unspecified; F41.9 Anxiety disorder, unspecified; F20.9 Schizophrenia, unspecified; Z20.822 Contact with and (suspected) exposure to COVID-19; Z98.51 Tubal ligation status; Z98.890 Other specified postprocedural states; Z88.2 Allergy status to sulfonamides; Z79.899 Other long term (current) drug therapy
CPT/HCPCS: 36245; 36569; 36600; 70450; 71045; 71275; 76937; 80048; 80053; 81003; 82271; 82550; 82728; 82805; 82962; 83540; 83550; 83880; 84484; 85025; 85379; 85610; 85730; 93005; 93970; 94660; 97116; 97162; 97167; 97530; 97535; 99291; J1644; J2060; J2270; J7050; Q9967; 36415-L1; 36415-TC; J7611

== ENCOUNTER 2022-07-21 19:04 | Emergency (ER) | payer OTHER ==
[~2022-07-21] VITALS: Ht 162.6 cm; Wt 75.0 kg
[~2022-07-21 19:04] MED LIST changes: +ALBU8HFA IH; +APIX5TAB PO; -CETI-450 PO; +MIRT-149 PO; -MIRT30 PO; +ROPI0.2535 PO; -VENL-68 PO
[2022-07-21] MEDS ORDERED: TRAZ-257 PO (20:24)
[2022-07-21] MEDS ORDERED: NAPR-1025 PO (20:24)
[2022-07-21] MEDS ORDERED: VENL-193 PO (20:24)
[2022-07-21] MEDS ORDERED: METF-1185 PO (20:24)
[2022-07-21] MEDS ORDERED: FERR325T23 PO (20:24)
[2022-07-21 20:46] LABS: ANION GAP 7 mmol/L (8-16); BASOPHILS % (AUTO) 0.5 % (0.0-2.0); CALCIUM, TOTAL 8.8 mg/dL (8.8-10.5); CARBON DIOXIDE 29 mmol/L (22-29); CHLORIDE 102 mmol/L (98-107); CREATININE 1.05 mg/dL (0.60-1.30); EOSINOPHILS % (AUTO) 2.8 % (1.0-6.0); GLOMERULAR FILTR. RATE CALC 53 mL/min (>60); GLUCOSE,RANDOM 92 mg/dL (70-110); HEMATOCRIT 39.3 % (36-46); HEMOGLOBIN 12.5 g/dL (12.0-16.0); LYMPHOCYTES # (AUTO) 3.9 K/uL (1.0-4.8); LYMPHOCYTES % (AUTO) 26.3 % (22.0-44.0); MEAN CORPUSCULAR HEMOGLOBIN 25.1 pg (26.0-34.0); MEAN CORPUSCULAR HGB CONC 31.7 G/dL (31.0-37.0); MEAN CORPUSCULAR VOLUME 79 fL (80-100); MONOCYTES # (AUTO) 0.8 K/uL (0.1-1.0); MONOCYTES % (AUTO) 5.4 % (2.0-9.0); NEUTROPHILS # (AUTO) 9.6 K/uL (1.8-7.7); PLATELET COUNT (AUTO) 489 K/uL (150-450); POTASSIUM 3.7 mmol/L (3.5-5.1); RED BLOOD CELL COUNT(AUTO) 4.96 MIL/uL (4.00-5.20); RED CELL DISTRIBUTION WIDTH 14.2 % (11.5-14.5); SODIUM SERUM 138 mmol/L (136-145); UREA NITROGEN, BLOOD 12 mg/dL (7-18)
[2022-07-21 20:51] LABS: ALANINE AMINOTRANSFERASE 16 U/L (12-78); ALBUMIN 3.6 g/dL (3.4-5.0); ALKALINE PHOSPHATASE 119 U/L (46-116); ASPARTATE AMINOTRANSFERASE 15 U/L (15-37); BILIRUBIN,TOTAL 0.3 mg/dL (0.1-1.0); TOTAL PROTEIN, SERUM 9.1 g/dL (6.4-8.2)
[2022-07-21 22:39] VITALS: BP 150/84
[2022-07-21] MEDS ORDERED: LORazepam 2 MG/ML VIAL IM ONE (22:45)
[2022-07-21] MEDS ORDERED: OLANZapine 5 MG TABLET PO ONE (23:15)
[2022-07-21] MEDS ORDERED: LORA-1000 PO (23:51)
== END 2022-07-22 00:05 | disposition home or self-care (01) ==
LOC: EMS 20:11
DX: F41.9 Anxiety disorder, unspecified (principal); F20.9 Schizophrenia, unspecified; I26.99 Other pulmonary embolism without acute cor pulmonale; F32.A Depression, unspecified; E03.9 Hypothyroidism, unspecified; F17.210 Nicotine dependence, cigarettes, uncomplicated; F12.90 Cannabis use, unspecified, uncomplicated; Z90.89 Acquired absence of other organs; Z98.51 Tubal ligation status; Z98.890 Other specified postprocedural states; Z88.2 Allergy status to sulfonamides
CPT/HCPCS: 99284; 96372; 80053; 85025; G0480; J2060

== ENCOUNTER 2023-01-06 10:07 | Emergency (ER) | payer MEDICARE, OTHER ==
[~2023-01-06] VITALS: Ht 162.6 cm; Wt 65.9 kg
[~2023-01-06 10:07] MED LIST changes: -ALBU8HFA IH; +FERR325T23 PO; +LORA-1000 PO; +METF-1185 PO; -MIRT-149 PO; +NAPR-1025 PO; -PHEN100C9 PO; -ROPI0.2535 PO; +TRAZ-257 PO; -TRAZ150T80 PO; +VENL-193 PO; -VENL-66 PO
[2023-01-06] MEDS ORDERED: IBUPROFEN 600 MG TABLET PO ONE (10:30)
[2023-01-06 12:11] VITALS: TEMP 97.6
[2023-01-06] MEDS ORDERED: TRAM-559 PO (12:14)
[2023-01-06 12:22] VITALS: BP 140/86; PULSE 87; RESP 18
== END 2023-01-06 12:37 | disposition home or self-care (01) ==
LOC: EMS 10:07
DX: S92.422A Displaced fracture of distal phalanx of left great toe, initial encounter for closed fracture (principal); S90.412A Abrasion, left great toe, initial encounter; F41.9 Anxiety disorder, unspecified; F32.A Depression, unspecified; E03.9 Hypothyroidism, unspecified; F20.9 Schizophrenia, unspecified; F17.210 Nicotine dependence, cigarettes, uncomplicated; F12.90 Cannabis use, unspecified, uncomplicated; X58.XXXA Exposure to other specified factors, initial encounter; Y93.89 Activity, other specified; Y92.89 Other specified places as the place of occurrence of the external cause; Y99.8 Other external cause status; Z90.89 Acquired absence of other organs; Z98.51 Tubal ligation status; Z98.890 Other specified postprocedural states; Z88.2 Allergy status to sulfonamides
CPT/HCPCS: 99283